=== PATIENT | male | born 1980 | race African-American/Black ===

== ENCOUNTER 2017-07-02 20:22 | Emergency (ER) | payer OTHER ==
[~2017-07-02] VITALS: Ht 180.3 cm; Wt 88.3 kg
[2017-07-02 21:16] VITALS: BP 133/81
== END 2017-07-02 21:50 | disposition home or self-care (01) ==
LOC: EME 20:22 → EDBD 20:22 → EME 20:22
DX: S40.011A Contusion of right shoulder, initial encounter (principal); W19.XXXA Unspecified fall, initial encounter
CPT/HCPCS: 73030; 99281; 99283